=== PATIENT | female | born 1935 | race Caucasian/White ===

== ENCOUNTER 2018-12-01 10:40 | Observation (INO) ==
--- NOTE | 2018-11-30 10:45 | EKG Report ---
Test Performed on : 11/30/2018 10:26:06 AM Test Reason : PAT Blood Pressure : / mmHG Vent. Rate : 053 BPM Atrial Rate : 053 BPM P-R Int : 198 ms QRS Dur : 096 ms QT Int : 440 ms P-R-T Axes : 040 -22 001 degrees QTc Int : 412 ms Sinus bradycardia. Moderate voltage criteria for LVH, may be normal variant Borderline ECG When compared with ECG of 12-FEB-2016 10:25, Criteria for Anteroseptal infarct are no longer present Nonspecific T wave abnormality no longer evident in Lateral leads Confirmed by Evert DICK, Scottie Pelletier ([id number]) on 11/30/2018 5:43:00 PM
[2018-11-30 11:45] LABS: BASO# 0.01 X1000 (0.0-0.2); BASO% 0.2 % (0.0-0.8); EOS# 0.15 X1000 (0.0-0.7); EOS% 3.2 % (0.0-10.0); HEMATOCRIT 37.6 % (37.0-47.0); HEMOGLOBIN 11.9 g/dL (12.0-16.0); LYMPH# 0.54 X1000 (1.2-3.4); LYMPH% 11.6 % (20.5-51.1); MCH 28.5 PG (27-31); MCHC 31.6 g/dL (33-37); MCV 90.2 FL (81-99); MONO# 0.24 X1000 (0.11-0.59); MONO% 5.2 % (1.7-9.3); MPV 9.7 FL (7.4-10.4); NEUT# 3.71 X1000 (1.4-6.5); NEUT% 79.8 % (42.2-75.2); PLT 162 X1000 (130-400); RBC 4.17 XMIL (4.2-5.4); RDW 13.7 % (11.5-14.5); WBC 4.65 X1000 (4.8-10.8)
[2018-11-30 12:26] LABS: AGAP 12; BUN 11 mg/dL (8-22); CALCIUM 9.5 mg/dL (8.8-10.2); CHLORIDE 101 mmol/L (98-107); COSMO 279; CREATININE 0.8 mg/dL (0.5-0.9); ESTIMATED GFR > 60; GLUCOSE 109 mg/dL (70-104); POTASSIUM 4.1 mmol/L (3.5-5.1); SODIUM 140 mmol/L (136-145); TCO2 27 mmol/L (25-35)
[2018-12-01] MEDS ORDERED: PEPCID ONE (11:10)
[2018-12-01] MEDS ORDERED: KEFZOL 1 GM/D5W 1 GM/50 ML IVPB ONE (11:10)
[2018-12-01] MEDS ORDERED: LR 1,000 ML ONE (11:10)
[2018-12-01] MEDS ORDERED: REGLAN ONE (11:10)
[2018-12-01] MEDS ORDERED: MORPHINE ONE ×3 (12:04→16:36)
[2018-12-01] MEDS ORDERED: ROBINUL ONE (12:42)
[2018-12-01] MEDS ORDERED: FENTANYL ONE (12:42)
[2018-12-01] MEDS ORDERED: XYLOCAINE-MPF 2% ONE (12:42)
[2018-12-01] MEDS ORDERED: DIPRIVAN 1% ONE (12:43)
[2018-12-01] MEDS ORDERED: NEOSPORIN G.U. IRRIGANT ONE (14:41)
[2018-12-01] MEDS ORDERED: SENSORCAINE 0.5%-EPI 1:200,000 ONE (14:41)
--- NOTE | 2018-12-01 16:03 | OPERATIVE NOTE ---
PROCEDURE DATE: 12/01/2018 PREOPERATIVE DIAGNOSIS: Nonunion left basilar/intertrochanteric hip fracture. POSTOPERATIVE DIAGNOSIS: Nonunion left basilar/intertrochanteric hip fracture. PROCEDURE: Hardware removal, TFN implant left hip. SURGEON: Lias Pedroza MD. PRINCIPAL MILITARY ANALYST: Gilberto Garcia. ANESTHESIA: General. COMPLICATION: None. PROCEDURE IN DETAIL: This 82-year-old female, non ambulator, presents for surgical hardware removal of nonunion of a left hip fracture. Risks, benefits and no guarantees were discussed and she is willing to proceed. She was taken to the operating room and satisfactory anesthesia obtained. The patient was placed on a fracture table and the lateral aspect of the hip and thigh prepped and draped in usual sterile fashion. A time out was taken to confirm operative site, procedure and patient. Under fluoroscopic guidance, a small incision was made over the distal interlocking screw and dissection carried down to this and this removed with the appropriate screwdriver. The hip was then imaged and incisions made over both the helical blade insertion site and the TFN entry site. Both sites were debrided. A retrieval device was attached to the TFN bordy. The helical blade was then subsequently removed with an additional removal device after loosening the anti-rotation screw. After removal of the helical blade the brody was removed. This completed the hardware removal. The C-arm was used to verify appropriate hardware removal. The wounds were irrigated and closed with 2-0 Vicryl, followed by skin izzy. Sterile dressings were applied. She was recovered from anesthesia and transferred to recovery room in stable condition. No intraoperative complications were noted. Instrument count and sponge count was correct at the time of closure. cc: Dameon Pedroza MD
[2018-12-01] MEDS ORDERED: 1/2 NS 1,000 ML ONE (16:23)
[2018-12-01] MEDS ORDERED: PERCOCET-5 PO PRN (18:41)
[2018-12-01] MEDS ORDERED: XARELTO PO SCH (18:45)
[2018-12-01] MEDS ORDERED: 1/2 NS 1,000 ML IV SCH (20:00)
[2018-12-01] MEDS ORDERED: NORCO-10 PO PRN (20:10)
[2018-12-01] MEDS ORDERED: NORCO-5 PO PRN (20:10)
[2018-12-01] MEDS ORDERED: NORCO-7.5 PO PRN (20:10)
[2018-12-01] MEDS ORDERED: ZOCOR PO SCH (21:00)
[2018-12-01] MEDS: COLACE PO SCH (22:08)
[2018-12-01] MEDS: CATAPRES PO SCH (22:09)
[2018-12-01] MEDS: LOPRESSOR PO SCH (22:09)
[2018-12-01] MEDS: PERIDEX MT SCH (22:09)
[2018-12-01] MEDS: SINEMET 25/100 PO SCH (22:10)
[2018-12-02] MEDS: CATAPRES PO SCH ×3 (00:56→07:59)
[2018-12-02] MEDS: COLACE PO SCH (00:56)
[2018-12-02] MEDS: SINEMET 25/100 PO SCH ×4 (00:56→11:38)
[2018-12-02 01:10] LABS: URINE SOURCE CLEAN CATCH
[2018-12-02 01:34] LABS: BILIRUBIN URINE NEGATIVE (NEGATIVE); BLOOD URINE NEGATIVE (NEGATIVE); COLOR YELLOW; GLUCOSE URINE NEGATIVE (NEGATIVE); KETONE URINE NEGATIVE (NEGATIVE); LEUKOCYTES URINE NEGATIVE (NEGATIVE); NITRITE URINE NEGATIVE (NEGATIVE); PH URINE 6.5; PROTEIN URINE NEGATIVE (NEGATIVE); SP GRAVITY URINE 1.006; TURBIDITY URINE CLEAR (CLEAR); UR EPITHELIAL CELLS <10 /HPF (<10); URINE BACTERIA NEGATIVE /HPF; URINE RBC <10 /HPF (<10); URINE WBC <10 /HPF (<10); UROBILINOGEN URINE NORMAL (NORMAL)
[2018-12-02] MEDS: LOPRESSOR PO SCH ×2 (03:17→07:59)
[2018-12-02] MEDS: XARELTO PO SCH ×2 (03:18→05:39)
[2018-12-02] MEDS ORDERED: PRILOSEC PO SCH (07:00)
[2018-12-02] MEDS: HYZAAR 100/12.5 MG TAB PO SCH ×2 (07:58→11:38)
[2018-12-02] MEDS: ASPIRIN PO SCH ×2 (07:58→11:37)
[2018-12-02] MEDS ORDERED: FERROUS SULFATE PO SCH (08:00)
--- NOTE | 2018-12-02 08:03 | PROGRESS NOTE ---
DATE: 12/02/2018 SUBJECTIVE: Ms. Goldman is seen status post removal of hardware for a hip fracture nonunion. This will be treated with benign neglect and essentially Girdlestone-type procedure at this point as she is a non-ambulator. She can be transferred back to her correction. Today, she is afebrile with stable vital signs. The bandages are clean and dry. She can be placed in an abduction pillow to prevent contracture at night. She can be mobilized with therapy during the daytime for range of motion. We have ordered therapy to prevent a hip contracture or hip adduction contracture. I will see her back in roughly 2 weeks' time for followup and staple removal. cc: Dameon Pedroza MD
[2018-12-02] MEDS ORDERED: BLISTEX MEDICATED BERRY LIP BALM TOP PRN (08:15)
[2018-12-02] MEDS ORDERED: VITAMIN B-12 PO SCH (09:00)
[2018-12-02] MEDS ORDERED: ZOLOFT PO SCH (09:00)
[2018-12-02] MEDS ORDERED: FOLIC ACID PO SCH (09:00)
[2018-12-02] MEDS: PERIDEX MT SCH (11:38)
[2018-12-02 13:54] VITALS: BP 100/41
[2018-12-03] MEDS ORDERED: DURAGESIC 12 MICROGM/HR PATCH TD SCH (09:00)
== END 2018-12-02 14:04 ==
LOC: OR 10:40 → 4N 10:40
PROVIDERS: ADMIT Orthopaedic Surgery Adult Reconstructive Orthopaedic Surgery; ATTEND Orthopaedic Surgery Adult Reconstructive Orthopaedic Surgery
CPT/HCPCS: 76000; 80048; 81001; 85025; 93005; 93010; 94761; 94799; 97110; 97162; 97530; A9270; J0690; J2270; J3010; J7120